=== PATIENT | female | born 1975 | race Caucasian/White ===

== ENCOUNTER → 2021-04-08 | Day surgery (SDC) | payer OTHER ==
[~2021-04-08] VITALS: Ht 154.9 cm; Wt 65.8 kg
[~2021-04-08] MED LIST: LISINOPRIL5 MG PO; MAG-OXIDE 400M400 MG PO; PERCOCET 5-3251 EACH PO; VITAMIN B-121000 MC1 PO; VITAMIN D350 MC5 PO; ZINC30 MG PO; [UNRECOGNIZED DRUG - MIXTURE] PO
[2021-04-08 09:35] LABS: HCG (URINE) SCREEN NEGATIVE (NEGATIVE)
== END | disposition home or self-care (01) ==
LOC: FAS 07:36
PROVIDERS: Anesthesiology
DX: K80.64 Calculus of gallbladder and bile duct with chronic cholecystitis without obstruction (principal); I10 Essential (primary) hypertension; Z79.899 Other long term (current) drug therapy; Z82.49 Family history of ischemic heart disease and other diseases of the circulatory system
CPT/HCPCS: 84703; J0295; J1100; J1885; J2250; J2405; J2710; J3010; J7120